=== PATIENT | female | born 1995 | race Hispanic/Latino ===

== ENCOUNTER 2019-08-19 15:39 | Day surgery (SDC) | payer OTHER ==
[2019-08-19 16:46] VITALS: BMI 28.3
--- NOTE | 2019-08-19 18:29 | PDOC.FPROB ---
FMR OB H&P: HPI - History of Present Illness Chief Complaint: Decreased Movement Indentification: 23 yo @ 37.0 wks History of Present Illness: 23yo @ 35wks by 7.3wk silas complicated by diet-controlled gDM presents for decreased movement. States she only felt baby move about 5 times yesterday but decreased than usual. This morning was similar. Presented to L&D triage. Currently endorses better movement. No LOF, vaginal bleeding, vaginal discharge, contractions. No CP, SOB, DAVILA, vision changes, LE edema. Primary Care Physician: ASHLEY Queen FMR OB H&P: Current - Care : 1 Para: 0 Gestational age: 37.0 Due date: 09/23/19 Dating Criteria: 7.4 wk sono Total weight gain: 11 lb - OB Labs Blood type: B RH: positive Antibody Screen: negative HIV: negative RPR: negative HepBsAg: negative Rubella: immune Quad screen: unknown Urine drug screen: not done Gonorrhea: unknown Chlamydia: unknown Pap Smear: Negative 1 hour gtt: 214 3 hour GTT: fasting 92, 1 hr 223, 2 hr 216, 3hr 208 A1c: 5.5 07/28 GBS: unknown H&H: 12.4 - Additional Ultrasound Additional: Most recent Growth U/S shows hadlack 72% on 08/03 FMR OB H&P: History - Past Medical History PMH: None - OB History OB History: None - 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 - Social History Social History: Denies any alcohol use, illicit drug use or smoking use - Family History Family History: No known OB or pediatric illnesses in family. FMR OB H&P: Medications - Current Home Medications: Medication Instructions Recorded Confirmed Type Vit37/Iron/Folic Acid 1 tab PO DAILY 08/19/19 08/19/19 History [Prenata Chewable Tablet] Allergies/Adverse Reactions: Allergies Allergy/AdvReac Type Severity Reaction Status Date / Time No Known Allergies Allergy Verified 08/19/19 16:28 FMR OB H&P: ROS - Review of Systems General: denies: fever/chills, weight/appetite/sleep changes, fatigue Eyes: denies: vision changes, double vision, scotomas ENT: denies: nasal congestion, rhinorrhea Cardiovascular: denies: chest pain, palpitation, edema Respiratory: denies: cough, congestion, shortness of breath Gastrointestinal: denies: abdominal pain, bloating, cramping, nausea, vomiting, diarrhea, constipation Genitourinary (Female): denies: incontinence, dysuria, hesitancy, vaginal discharge, vaginal pain, vaginal bleeding, contractions, vaginal pressure Musculoskeletal: denies: pain Neurologic: denies: numbness Integumentary: denies: itching, rash FMR OB H&P: Vital Signs - Maternal Vital signs: T 98.4, P 76, BP 107/60, O2 97% on RA. - Heart Tones Baseline: 130 (reactive) Variability: moderate Acceleration: present Deceleration: absent [place] contractions every: intermittant FMR OB H&P: Physical Exam - Physical Exam General: NAD, awake, alert and oriented HEENT: normocephalic and atraumatic, PERRLA, EOMI, MMM, conjunctiva clear Neck: supple, trachea midline Heart: RRR, normal S1/S2, no murmurs/rubs/gallops, pulses present, no edema General: CTAB, no respiratory distress, good air movement, no rales/rhonchi, no wheezing Abdomen: soft, gravid, non-tender, bowel sound present Musculoskeletal: pulses present Neurological: no focal deficit Skin: no rash Lymphatic: no unusual bruising or bleeding Psychiatric: intact recent and remote memory, good judgement and insight, normal mood and affect FMR OB H&P: A/P - Problem List (1) Third trimester Current Visit: Yes Status: Acute Code(s): Z34.93 - ENCNTR FOR SUPRVSN OF NORMAL PREG, UNSP, THIRD TRIMESTER (2) Decreased movement Current Visit: Yes Status: Acute Code(s): O36.8190 - DECREASED MOVEMENTS, UNSP TRIMESTER, UNSP Disposition: 23yo @ 35wks by 7.3wk sono complicated by diet-controlled gDM presents for decreased movement. #Decreased movement - Reports about 5 movements in past 24 hours - No LOF, vaginal bleeding, vaginal discharge, or contractions - On FHT - reactive with mod variability, baseline 130, accels, no deccels, intermittent contractions - BPP obtained, 6 (no breathing recorded), JANNETTE 9.8 - plan to discharge with return labor precautions, given counseling on kick counts #Third trimester complicated by gDM - 35wks by 7.3wk sono - diet controlled gDM - follow up with routine care with Dr. Paez at [facility] Dispo: Reassuring heart tracing and BPP. Labor precautions given. Discharged home. Discussion: Date/Time: 08/19/191826 This H&P was discussed with Dr. Segundo and Dr. Pitts who agree with the above documentation and plan.
--- NOTE | 2019-08-19 19:06 | ULT ---
Sonographic biophysical profile exam HISTORY: Diminished movement. FINDINGS: Single intrauterine gestation in cephalic presentation. Amniotic fluid index 9.8. Heart motion at 122 bpm. At real-time sonography, there was good tone and gross movements. [place] thing movements not visualized. IMPRESSION: Sonographic biophysical profile score 6/8. breathing movement not visible.
[2019-08-20] MEDS ORDERED: FLU VACC QS2019-20(6MOS UP)/PF 60 MCG/0.5 ML SYRINGE IM ONE (09:00)
== END 2019-08-19 19:15 | disposition home or self-care (01) ==
LOC: L&D/OP 15:39
PROVIDERS: ATTEND Obstetrics & Gynecology
DX: O36.8130 Decreased fetal movements, third trimester, not applicable or unspecified (principal); O24.410 Gestational diabetes mellitus in pregnancy, diet controlled; Z3A.35 35 weeks gestation of pregnancy
CPT/HCPCS: 59025; 76815; 76819; 99282

== ENCOUNTER 2019-09-18 19:09 | Inpatient (IN) | payer MEDICAID, OTHER, SELFPAY ==
[2019-09-18 19:48] VITALS: BMI 29.7
[2019-09-18] MEDS: Lactated Ringer's 1,000 ML IV SCH (19:50)
[2019-09-18] MEDS ORDERED: hydrALAZINE 20 MG/ML VIAL SLOW IVP PRN (20:08)
[2019-09-18] MEDS ORDERED: Promethazine HCl 25 MG/ML VIAL IM PRN (20:08)
[2019-09-18] MEDS ORDERED: Ondansetron PF 4 MG/2 ML Vial IVP PRN (20:08)
[2019-09-18] MEDS ORDERED: Butorphanol Tartrate 1 MG/ML VIAL SLOW IVP PRN (20:08)
[2019-09-18] MEDS ORDERED: Misoprostol 100 MCG TAB ONE (20:39)
[2019-09-18] MEDS ORDERED: Misoprostol 100 MCG TAB VAG SCH (20:45)
[2019-09-18 20:51] LABS: Hemoglobin 12.4 g/dL (12.0-16.0); Mean Corpuscular HGB CONC 33.7 g/dL (32.0-36.0); Mean Corpuscular Hemoglobin 26.5 pg (27.0-31.0); Mean Corpuscular Volume 78.7 fL (78.0-98.0); Mean Platelet Volume 10.6 fL (7.4-10.4); Platelet Count 173 thou/uL (130-400); RBC Distribution Width 14.3 % (11.5-14.5); Red Blood Cell (RBC) Count 4.68 mill/uL (4.20-5.40); White Blood Cell (WBC) Count 8.1 thou/uL (4.8-10.8)
--- NOTE | 2019-09-18 21:19 | PDOC.FPROB ---
FMR OB H&P: HPI - History of Present Illness Chief Complaint: mIOL Indentification: 23 year old at 39.2 wks History of Present Illness: 23 year old at 39.2 wks presents for mIOL for A1GDM and grade 3 placenta. Patient endorses occasional non-painful contractions. She denies LoF, vaginal bleeding, or vaginal discharge. Patient endorses good movement. 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: Denies history of STD's - Surgical History Sx History: Denies - Social History Social History: Denies alcohol, tobacco, or drug use - Family History Family History: Mother and father with DM FMR OB H&P: Medications - Current Home Medications: Medication Instructions Recorded Confirmed Type Vit37/Iron/Folic Acid 1 tab PO DAILY 08/19/19 09/18/19 History [Prenata Chewable Tablet] Allergies/Adverse Reactions: Allergies Allergy/AdvReac Type Severity Reaction Status Date / Time No Known Allergies Allergy Verified 08/19/19 16:28 FMR OB H&P: ROS - Review of Systems General: denies: fever/chills, weight/appetite/sleep changes Eyes: denies: vision changes, scotomas ENT: denies: nasal congestion, rhinorrhea, sore throat Cardiovascular: denies: chest pain, palpitation, edema Respiratory: denies: cough, congestion, shortness of breath Gastrointestinal: denies: abdominal pain, nausea, vomiting, diarrhea Genitourinary (Female): denies: dysuria, vaginal discharge, vaginal bleeding, contractions Musculoskeletal: denies: pain, stiffness, tenderness Neurologic: denies: numbness, syncope, seizures Integumentary: denies: itching, rash, lesions Hematologic/Lymphatic: denies: prolonged or excessive bleeding Psychological: denies: depression, anxiety FMR OB H&P: Vital Signs - Maternal Vital signs: Vital Signs - First Documented Temp Pulse Resp BP 98.7 F 93 18 122/74 09/18/19 19:42 09/18/19 19:42 09/18/19 19:42 09/18/19 19:42 - Heart Tones Baseline: 150 Variability: minimal Acceleration: present Deceleration: absent Category: category 1 [place] contractions every: q6 min FMR OB H&P: Physical Exam - Physical Exam General: NAD HEENT: MMM, grossly normal vision, grossly normal hearing Heart: RRR, pulses present, no edema Deviation from normal: 3/6 systolic murmur General: no respiratory distress, no retractions Abdomen: soft, gravid, non-tender Musculoskeletal: pulses present, FROM in all four extremities Neurological: no tremor, no focal deficit Skin: no rash, capillary refill <2 seconds Lymphatic: no unusual bruising or bleeding, no purpura Psychiatric: intact recent and remote memory, good judgement and insight, normal mood and affect - Pelvic Exam SVE: closed/thick/high Presentation: Cephalic FMR OB H&P: Results - Labs Lab results: Laboratory Results - last 24 hr 09/18/19 20:31 WBC 8.1 RBC 4.68 Hgb 12.4 Hct 36.8 MCV 78.7 MCH 26.5 L MCHC 33.7 RDW 14.3 Plt Count 173 MPV 10.6 H FMR OB H&P: A/P - Problem List (1) Encounter for induction of labor Current Visit: Yes Status: Acute Code(s): Z34.90 - ENCNTR FOR SUPRVSN OF NORMAL , UNSP, UNSP TRIMESTER (2) GDM, class A1 Current Visit: Yes Status: Acute Code(s): O24.410 - GESTATIONAL DIABETES MELLITUS IN , DIET CONTROLLED (3) Heart murmur Current Visit: Yes Status: Acute Code(s): R01.1 - CARDIAC MURMUR, UNSPECIFIED Disposition: 23 year old at 39.2 wks by 7.4 wk sono mIOL for A1GDM and grade 3 placenta - Cat I strip - Closed/thick/high, cytotec placed (20:30) - q4h cervical checks - Bedside sono performed; cephalic presentation A1GDM - BG pending Heart murmur - Was not able to follow with cardiology due to cost - Was not able to get echo due to cost - Consider PP echo - Monitor for cardiomyopathy - CMP pending Dispo: Admit to L&D for mIOL. Discussion: Date/Time: 09/18/192111 This H&P was discussed with Dr. Martinez who agrees with the above documentation and plan. Signature: Jaquelin Paez DO PG-3 Addendum - Attending - Attending Attestation Date/Time: 09/19/19 [id number] I personally evaluated the patient and discussed the management with Dr. Paez last night. I agree with the History, Examination, Assessment and Plan documented above with any addition or exceptions noted below.
[2019-09-18 21:31] LABS: Syphilis Antibody Nonreactive (Nonreactive); Syphilis Antibody Index 0.03 S/CO (<1.00 Non-Reactive)
[2019-09-18 21:53] LABS: HBSAg Index 0.31 S/CO (0-0.99); Hep B Surf Ag Non-Reactive S/CO (NonReactive)
[2019-09-18 22:36] LABS: ALT (SGPT) 11 U/L (8-55); AST (SGOT) 13 U/L (5-34); Albumin 3.2 g/dL (3.5-5.0); Alkaline Phosphatase 206 U/L (40-110); Anion Gap 15 mmol/L (10-20); BUN (Urea Nitrogen) 17 mg/dL (7.0-18.7); Bilirubin, Total 0.2 mg/dL (0.2-1.2); Calc. Creatinine Clearance 156 mL/min (70-130); Calcium 9.6 mg/dL (7.8-10.44); Carbon Dioxide 19 mmol/L (22-29); Chloride 108 mmol/L (98-107); Estimated GFR-MDRD Greater than 90; Glucose 97 mg/dL (70-105); Potassium 3.7 mmol/L (3.5-5.1); Protein, Total 6.2 g/dL (6.0-8.3); Sodium 138 mmol/L (136-145)
[2019-09-19] MEDS: Lactated Ringer's 1,000 ML IV SCH ×3 (01:11→23:29)
--- NOTE | 2019-09-19 01:31 | PDOC.LDPN ---
Labor & Delivery Progress Note - Subjective Subjective: comfortable - Objective Vital signs reviewed and normal: yes General: NAD, resting Uterine fundus: non tender SVE: at 1:15 by Jeannine Dilation: 3 Effacement: 0% Station: -3 FHT: category 1, variability present [place] contractions every: q3-6 min - Assessment (1) Encounter for induction of labor Code(s): Z34.90 - ENCNTR FOR SUPRVSN OF NORMAL , UNSP, UNSP TRIMESTER Current Visit: Yes Status: Acute (2) GDM, class A1 Code(s): O24.410 - GESTATIONAL DIABETES MELLITUS IN , DIET CONTROLLED Current Visit: Yes Status: Acute (3) Heart murmur Code(s): R01.1 - CARDIAC MURMUR, UNSPECIFIED Current Visit: Yes Status: Acute Plan: continue plan of care -: Patient has made cervical change with one dose of cytotec. Will monitor for another 2 hours and recheck. If no cervical change at that time, will start pitocin.
[2019-09-19] MEDS ORDERED: NS w/ Oxytocin 10 units 500 ML ONE (04:39)
--- NOTE | 2019-09-19 04:40 | PDOC.LDPN ---
Labor & Delivery Progress Note - Subjective Subjective: painful contractions - Objective Vital signs reviewed and normal: yes General: NAD, resting, breathing through contractions Uterine fundus: non tender SVE: 4:30 Dilation: 3 Effacement: 0% Station: -3 FHT: category 1, variability present [place] contractions every: q3-5 min - Assessment (1) Encounter for induction of labor Code(s): Z34.90 - ENCNTR FOR SUPRVSN OF NORMAL , UNSP, UNSP TRIMESTER Current Visit: Yes Status: Acute (2) GDM, class A1 Code(s): O24.410 - GESTATIONAL DIABETES MELLITUS IN , DIET CONTROLLED Current Visit: Yes Status: Acute (3) Heart murmur Code(s): R01.1 - CARDIAC MURMUR, UNSPECIFIED Current Visit: Yes Status: Acute Plan: continue plan of care, labor augmentation, pitocin for augmentation -: Cervical exam unchanged, 3, soft, midposition. Will augment labor with pitocin. Recheck in 2 hours.
[2019-09-19] MEDS: Misoprostol 100 MCG TAB VAG SCH ×5 (04:45→23:29)
[2019-09-19] MEDS ORDERED: NS w/ Oxytocin 10 units 500 ML IV SCH (04:45)
--- NOTE | 2019-09-19 09:28 | PDOC.LDPN ---
Labor & Delivery Progress Note - Subjective Subjective: comfortable, painful contractions - Objective Vital signs reviewed and normal: yes General: NAD, breathing through contractions Uterine fundus: non tender SVE: 9:15 by Jeannine Dilation: 4 Effacement: 50% Station: -1 FHT: category 1, variability present [place] contractions every: q2-3 min AROM: clear fluid - Assessment (1) Encounter for induction of labor Code(s): Z34.90 - ENCNTR FOR SUPRVSN OF NORMAL , UNSP, UNSP TRIMESTER Current Visit: Yes Status: Acute (2) GDM, class A1 Code(s): O24.410 - GESTATIONAL DIABETES MELLITUS IN , DIET CONTROLLED Current Visit: Yes Status: Acute (3) Heart murmur Code(s): R01.1 - CARDIAC MURMUR, UNSPECIFIED Current Visit: Yes Status: Acute Plan: continue plan of care, labor augmentation, pitocin for augmentation -: AROM clear fluid, cervical exam 4.5/50/-1, soft, mid position. Continue augmentation with pitocin. Addendum - Attending - Attending Attestation Date/Time: 09/19/19 1009 I personally evaluated the patient and discussed the management with Dr. Paez. I agree with the History, Examination, Assessment and Plan documented above with any addition or exceptions noted below.
[2019-09-19] MEDS ORDERED: Fentanyl 4 mcg/Bup 0.1% Cadd 100 ML ONE ×2 (09:41→16:41)
[2019-09-19] MEDS ORDERED: diphenhydrAMINE 50 MG/ML VIAL IVP PRN (11:06)
[2019-09-19] MEDS ORDERED: Ondansetron PF 4 MG/2 ML Vial IVP PRN (11:06)
[2019-09-19] MEDS ORDERED: ePHEDrine/0.9% NaCl/PF SYRINGE 50 mg/10 ml SLOW IVP PRN (11:06)
[2019-09-19] MEDS ORDERED: Lactated Ringer's 500 ML IV PRN (11:06)
[2019-09-19] MEDS ORDERED: Naloxone HCl 0.4 mg/ml Vial IVP PRN ×2 (11:06)
[2019-09-19] MEDS ORDERED: Promethazine HCl 25 MG/ML VIAL IM PRN (11:06)
[2019-09-19] MEDS ORDERED: Fentanyl 4 mcg/Bupivacaine 0.1% Cassette 100 ML EPIDURAL SCH (11:15)
[2019-09-19] MEDS ORDERED: Communication Order-Pharmacy FS PRN (11:15)
--- NOTE | 2019-09-19 13:01 | PDOC.LDPN ---
Labor & Delivery Progress Note - Subjective Subjective: comfortable - Objective Vital signs reviewed and normal: yes General: NAD, resting SVE: 5/80/-2 Dilation: 5 Station: -2 FHT: category 1 (moderate variability, accels present, no decels) [place] contractions every: 2-3 min AROM: clear fluid (on last check) Plan: continue plan of care -: - epidural in place - continue expectant mgmt. - updated Dr. Paez/Juan on plan of care.
--- NOTE | 2019-09-19 15:27 | PDOC.LDPN ---
Labor & Delivery Progress Note - Subjective Subjective: painful contractions - Objective Vital signs reviewed and normal: yes General: NAD Uterine fundus: palpable contractions SVE: /1 @ 1515 FHT: category 2, late decelerations (about 50% of ctx, but has improved after stopping pitocin) [place] contractions every: 2-3 min - Assessment (1) Encounter for induction of labor Code(s): Z34.90 - ENCNTR FOR SUPRVSN OF NORMAL , UNSP, UNSP TRIMESTER Current Visit: Yes Status: Acute Comment: Cat 2 FHT, currently late decels , was variables earlier -Consider amnioinfusion if variables recur -Gave bolus and stopped pitocin -Cervical check -Position changes -Monitor cervical checks and FHT Plan: resuscitative measures
[2019-09-19] MEDS ORDERED: Bicitra 30 ML UDCUP ONE (16:35)
[2019-09-19] MEDS ORDERED: Midazolam HCl 5 mg/5 ml Vial ONE (16:35)
[2019-09-19] MEDS ORDERED: KETAMINE 100 MG/ML (5ML VIAL) ONE (16:35)
[2019-09-19] MEDS ORDERED: Midazolam HCl 2 mg/2 ml Vial ONE (16:35)
[2019-09-19] MEDS ORDERED: Fentanyl 100 MCG/2 ML VIAL ONE (16:35)
--- NOTE | 2019-09-19 19:11 | PDOC.LDPN ---
Labor & Delivery Progress Note - Subjective Subjective: comfortable - Objective Vital signs reviewed and normal: yes General: NAD, resting Uterine fundus: non tender SVE: 18:42 by Letty Dilation: 8.5 Effacement: 90% Station: 0 FHT: category 2, variability present [place] contractions every: q4-5 min - Assessment (1) Encounter for induction of labor Code(s): Z34.90 - ENCNTR FOR SUPRVSN OF NORMAL , UNSP, UNSP TRIMESTER Current Visit: Yes Status: Acute Comment: Cat 2 FHT, currently late decels , was variables earlier -Consider amnioinfusion if variables recur -Gave bolus and stopped pitocin -Cervical check /-1 -Position changes -Monitor cervical checks and FHT (2) GDM, class A1 Code(s): O24.410 - GESTATIONAL DIABETES MELLITUS IN , DIET CONTROLLED Current Visit: Yes Status: Acute (3) Heart murmur Code(s): R01.1 - CARDIAC MURMUR, UNSPECIFIED Current Visit: Yes Status: Acute Plan: continue plan of care, labor augmentation, pitocin for augmentation -: Patient off pit for a over an hour d/t NRFHT's (persistent cat II strip w/ recurrent late decelerations). Strip recovered and patient started back on pit at 2. Patient on pit at 2 for an hour. Has made cervical change (8.5/95/0). Strip currently category I, will increase dose of pit as tolerated. Addendum - Attending - Attending Attestation Date/Time: 09/19/192035 I personally evaluated the patient and discussed the management with Dr. Paez I agree with the History, Examination, Assessment and Plan documented above with any addition or exceptions noted below. 23 yo female at 39.3 wks admitted for IOL 2/2 A1GDM. Patient doing well. Off pit due to cat 2 tracing. Now improved to cat 1. Continue to increase pitocin per protocol as tolerated. Monitor closely. Now 8 to 9 cm. Cephalic. GBS negative. 8.5 lbs. Glucose 90. ABrayMD
[2019-09-19] MEDS ORDERED: NS / Oxytocin 40 units/1000ml 1,000 ML ONE ×2 (19:36→21:33)
--- NOTE | 2019-09-19 21:16 | PDOC.OPDEL ---
OB Operative/Delivery Note Delivery Dr/Surgeon: Tomas Paez Assist: Stephen Pre-Delivery Diagnosis: elective induction Procedure/Post Delivery Dx: spontaneous vaginal delivery Weeks gestation: 3
--- NOTE | 2019-09-19 21:21 | PDOC.OPDEL ---
OB Operative/Delivery Note Delivery Dr/Surgeon: Tmoas Paez Assist: Stephen Pre-Delivery Diagnosis: elective induction Procedure/Post Delivery Dx: spontaneous vaginal delivery Weeks gestation: 39 (39.3 wks) Anesthesia: epidural - Findings A Sex: female - 1 min: 9 - 5 min: 9 - Additional Findings/Plan Placenta delivered: spontaneous Repaired Obstetrical Laceration: periurethral (hemostatic) Estimated blood loss: 350 mL Compilations/Other Findings: Delivering Physician: Jeannine Attending: Tomas Procedure: Spontaneous Vaginal Delivery Anesthesia: Epidural EBL: 350 mL Pre-op Diagnosis: 1. Term intrauterine 2. eIOL for A1GDM and grade 3 placenta 3. A1GDM 4. Grade 3 placenta 5. Heart murmur, concern for cardiomyopathy Post-op Diagnosis: 1. Term intrauterine , delivered 2. Same as above Indications: A 23 y/o female G1 now P1 presented to L&D for eIOL for A1GDM and grade 3 placenta. Delivery Note: This is 23 yo F G1 now P1 @ 39.3 wks who delivered a viable F infant at 20:17 on 09/19/2019. Following an uneventful intrapartum course, a vigorous F was delivered over an intact perineum in the occipitoanterior position. Anterior Shoulder and then remainder of the body delivered. No nuchal cord. The head was held down and mouth and nares were bulb suctioned. Cord clamped and cut and cord blood collected. Placenta delivered intact with a 3 vessel cord noted. Fundal massage was performed and the fundus was firm. The cervix and vagina were inspected and a 2nd degree laceration was noted and repaired with 2-[address] in the usual fashion with good approximation and hemostasis. Right sided periurethral laceration, hemostatic withour repair. Left sided labial hematoma noted, non-expanding. went to nursery in good condition for routine care. Apgars were 9/9 at 1 & 5 minutes, respectively. Patient tolerated delivery well and went to after routine recovery/care. Attending Note: I was present and participated in the above noted procedure. Uncomplicated . APGARs 9/9. 2nd degree perineal s/p repair. Routine recovery and pp care. ABrayMD Post delivery plan: routine recovery
[2019-09-19] MEDS ORDERED: Benzocaine-Menthol 82.5 ML CAN TOP PRN (23:11)
[2019-09-19] MEDS ORDERED: NS / Oxytocin 40 units/1000ml 1,000 ML IV SCH (23:11)
[2019-09-19] MEDS ORDERED: Lanolin Ointment 7 GM TUBE TOP PRN (23:11)
[2019-09-19] MEDS ORDERED: hydrALAZINE 20 MG/ML VIAL SLOW IVP PRN (23:11)
[2019-09-19] MEDS ORDERED: Bisacodyl 10 MG SUPP PR PRN (23:11)
[2019-09-19] MEDS ORDERED: diphenhydrAMINE 25 MG CAP PO PRN (23:11)
[2019-09-19] MEDS ORDERED: Preparation H Ointment 28 GM TUBE PR PRN (23:11)
[2019-09-19] MEDS ORDERED: Milk Of Magnesia 30 ML UDCUP PO PRN (23:11)
[2019-09-20] MEDS: Ibuprofen 800 MG TAB PO SCH ×3 (01:04→21:55)
[2019-09-20] MEDS ORDERED: Adacel (T-DAP) 0.5 ML SYRINGE IM ONE (09:00)
[2019-09-20] MEDS: Ferrous Sulfate 325 MG TAB PO SCH ×2 (09:21→17:18)
[2019-09-20] MEDS: Prenatal Vitamin 1 TAB PO SCH (09:22)
[2019-09-20] MEDS: Docusate Calcium (SURFAK) 240 MG CAP PO SCH ×2 (09:22→21:55)
--- NOTE | 2019-09-20 11:02 | PDOC.PP ---
Post Progress Note Post Day #: 1 Subjective: Patient doing well. No significant overnight events. Patient tolerating PO. Patient with left labial hematoma which is painful. Pain improved with ice pack. no increase in size overnight. PO intake tolerated: yes Flatus: yes Ambulation: yes Vital Signs (12 hours) Temp Pulse Resp BP Pulse Ox 09/20/19 07:57 98.5 F 81 20 108/56 L 97 09/20/19 04:15 98.9 F 75 16 109/59 L 09/20/19 00:00 98.7 F 74 16 116/62 Weight Weight 78.471 kg - Physical Examination General: NAD Cardiovascular: no m/r/g (Could not appreciate murmur on exam today; previously 3/6 systolic murmur), RRR Respiratory: clear to auscultation bilaterally, non-labored breathing Abdominal: + bowel sounds, lochia (similar to period), no distention, appropriately TTP Fundus firm & at: below umbilicus Skin: no rash Perineum: Intact, left labial swelling which appears contained Neurological: no gross focal deficits Psychiatric: A&Ox3, normal affect Result Diagrams: 09/18/19 20:31 09/18/19 22:08 Additional Labs: Post Labs Blood Type B POSITIVE 09/18/19 22:08 Hep Bs Antigen Non-Reactive S/CO (NonReactive) 09/18/19 20:31 (1) GDM, class A1 Code(s): O24.410 - GESTATIONAL DIABETES MELLITUS IN , DIET CONTROLLED Status: Acute (2) Heart murmur Code(s): R01.1 - CARDIAC MURMUR, UNSPECIFIED Status: Acute (3) Term delivered Code(s): O80 - ENCOUNTER FOR FULL-TERM UNCOMPLICATED DELIVERY Status: Acute - Assessment/Plan 23 year old G1 now P1 at 39.3 wks delivered TAGA F infant at 20:17 on 2018 via . 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 Addendum - Attending - Attending Attestation Date/Time: 09/20/19 1112 I personally evaluated the patient and discussed the management with Dr. Paez. I agree with the History, Examination, Assessment and Plan documented above with any addition or exceptions noted below.
[2019-09-20] MEDS: Acetaminophen 325 MG TAB PO PRN (19:15)
--- NOTE | 2019-09-21 08:04 | PDOC.PP ---
Post Progress Note Post Day #: 2 Subjective: Patient doing well. No significant overnight events. Labial swelling improved. Lochia like that of period. Patient ready for d/c home today. going well. PO intake tolerated: yes Flatus: yes Ambulation: yes Weight Weight 78.471 kg - Physical Examination General: NAD Cardiovascular: no m/r/g, RRR Respiratory: clear to auscultation bilaterally, non-labored breathing Abdominal: + bowel sounds, lochia (similar to period), no distention, appropriately TTP Fundus firm & at: below umbilicus Skin: no rash Neurological: no gross focal deficits Psychiatric: A&Ox3, normal affect Result Diagrams: 09/18/19 20:31 09/18/19 22:08 Additional Labs: Post Labs Blood Type B POSITIVE 09/18/19 22:08 Hep Bs Antigen Non-Reactive S/CO (NonReactive) 09/18/19 20:31 (1) GDM, class A1 Code(s): O24.410 - GESTATIONAL DIABETES MELLITUS IN , DIET CONTROLLED Status: Acute (2) Heart murmur Code(s): R01.1 - CARDIAC MURMUR, UNSPECIFIED Status: Acute (3) Term delivered Code(s): O80 - ENCOUNTER FOR FULL-TERM UNCOMPLICATED DELIVERY Status: Acute - Assessment/Plan 23 year old G1 now P1 at 39.3 wks delivered TAGA F infant at 20:17 on 2018 via . Term IUP, delivered - Routine PP care - PP day #2 - Meeting milestones - Rh +, rubella immune - well 2nd degree perineal laceration - Appears to be healing well, intact - Left labial swelling/hematoma which appears improved from previous exam - Ice packs as needed A1GDM - BG well controlled during delivery - 2h GTT 6 wk PP Dispo: Plan for d/c home today. Addendum - Attending - Attending Attestation Date/Time: 09/22/19 0857 I personally evaluated the patient and discussed the management with Dr. Paez. I agree with the History, Examination, Assessment and Plan documented above with any addition or exceptions noted below.
[2019-09-21] MEDS: Ferrous Sulfate 325 MG TAB PO SCH ×2 (09:20→16:23)
[2019-09-21] MEDS: Ibuprofen 800 MG TAB PO SCH (09:40)
[2019-09-21] MEDS: Docusate Calcium (SURFAK) 240 MG CAP PO SCH (09:40)
[2019-09-21] MEDS: Prenatal Vitamin 1 TAB PO SCH (09:40)
[2019-09-21 12:09] VITALS: BP 124/74; TEMP 98.4
[2019-09-21] MEDS: Acetaminophen 325 MG TAB PO PRN (16:21)
== END 2019-09-21 16:45 | disposition home or self-care (01) | DRG 807 ==
LOC: L&D 19:09 → 3SW 09-19 23:04
PROVIDERS: ADMIT Family Medicine; ATTEND Family Medicine
PROC: 10E0XZZ Delivery of Products of Conception, External Approach (ICD-10-PCS; principal; 2019-09-19)
PROC: 3E0P7VZ Introduction of Hormone into Female Reproductive, Via Natural or Artificial Opening (ICD-10-PCS; 2019-09-19)
PROC: 0KQM0ZZ Repair Perineum Muscle, Open Approach (ICD-10-PCS; 2019-09-19)
PROC: 3E033VJ Introduction of Other Hormone into Peripheral Vein, Percutaneous Approach (ICD-10-PCS; 2019-09-19)
PROC: 10907ZC Drainage of Amniotic Fluid, Therapeutic from Products of Conception, Via Natural or Artificial Opening (ICD-10-PCS; 2019-09-19)
DX: O24.420 Gestational diabetes mellitus in childbirth, diet controlled (principal); Z37.0 Single live birth; Z3A.39 39 weeks gestation of pregnancy; O76 Abnormality in fetal heart rate and rhythm complicating labor and delivery; O70.1 Second degree perineal laceration during delivery; O43.893 Other placental disorders, third trimester; R01.1 Cardiac murmur, unspecified; O26.893 Other specified pregnancy related conditions, third trimester
CPT/HCPCS: 36415; 36416; 51702; 80053; 85027; 86780; 86850; 86900; 86901; 87340; J2250; J2590; J3010